=== PATIENT | male | born 1950 | race Caucasian/White ===

== ENCOUNTER 2024-01-29 08:20 | Day surgery (SDC) | payer MEDICARE, SELFPAY ==
--- NOTE | 2024-01-29 08:35 | US_ITS ---
[address] [address] Patient Name: MAINOR YEH MRN: [id number] date: 1950 Sex: M Assigned Patient Location: US Current Patient Location: US Accession/Order Number: [id number] Exam Date: 01/29/2024 09:00 Report Date: 01/29/2024 10:13 At the request of: ANY NEGRO Procedure: US biopsy thyroid EXAMINATION: US biopsy thyroid HISTORY: Thyroid Nodule COMPARISON: Ultrasound thyroid 12/15/2023 TECHNIQUE: After obtaining informed consent, ultrasound-guided fine needle aspiration was performed in the usual sterile manner. FINDINGS: IMAGING: Ultrasound. BIOPSY NEEDLE: 25-gauge; 3 separate passes LOCATION: Within versus posterior to right lobe. SPECIMEN TYPE: Cellular tissue. 2.6 cm hypoechoic, slightly heterogeneous and slightly vascular mass. LOCAL ANESTHETIC: Buffered Xylocaine. COMPLICATIONS: None. LABORATORY: Prepared slide smears and washings for cell block evaluation. OTHER: Negative. PATHOLOGY: Pending. An addendum will be added when results are available. US/US biopsy thyroid IMPRESSION: 1. Uneventful ultrasound guided fine needle aspiration (FNA). 2. Pathology results are pending. Electronically authenticated by: KASSY ROBERT Date: 01/29/2024 10:13
[2024-01-29 09:00] VITALS: BP 159/87; PULSE 98; O2SAT 98
[2024-01-29] MEDS: LIDOCAINE HCL 10 ML, SODIUM BICARBONATE 1 MEQ INJ (09:35)
--- NOTE | 2024-01-29 10:18 | SUR.PREOP ---
01/20/24 Pt instructed on procedure, date, time, and prep.
== END 2024-01-29 09:45 | disposition home or self-care (01) ==
LOC: US 08:27
PROVIDERS: Radiology Diagnostic Radiology; Visit Provider Otolaryngology
DX: E04.1 Nontoxic single thyroid nodule (principal)
CPT/HCPCS: 10005; 88173; 99999